=== PATIENT | male | born 1950 | race Caucasian/White ===

== ENCOUNTER 2022-05-16 15:58 | Emergency (ER) | payer MEDICARE, BC ==
[~2022-05-16] VITALS: Ht 185.4 cm; Wt 95.7 kg
--- NOTE | 2022-05-16 16:10 | NUR ---
RECEIVED PT 71 YRS old male came by rob peña/andres back pain 04/28 goting worser today dineses HX TRUAMA MOVING ALL EXTRAMITY
[2022-05-16] MEDS ORDERED: predniSONE 20 MG TABLET PO ONE (16:30)
[2022-05-16] MEDS ORDERED: KETOROLAC TROMETHAMINE INJ 60 MG/2 ML VIAL IM ONE ×2 (16:30→16:35)
[2022-05-16] MEDS ORDERED: DIAZEPAM 5 MG TABLET PO ONE (16:30)
[2022-05-16] MEDS ORDERED: predniSONE 20 MG TABLET ONE (16:36)
[2022-05-16] MEDS ORDERED: DIAZEPAM 5 MG TABLET ONE (16:36)
[2022-05-16] MEDS ORDERED: HYDR-3972 PO ×2 (17:55→19:51)
[2022-05-16] MEDS ORDERED: METH-647 PO ×2 (17:55→19:51)
[2022-05-16] MEDS ORDERED: PRED50TA PO ×2 (17:55→19:51)
--- NOTE | 2022-05-16 18:10 | NUR ---
Patient discharged to home in stable condition. Written and verbal after care instructions given. Patient verbalizes understanding of instruction.
[2022-05-16] MEDS ORDERED: CAPS42.513 TP ×2 (18:22→19:51)
[2022-05-16 18:26] VITALS: BP 116/65
== END 2022-05-16 18:29 | disposition home or self-care (01) ==
LOC: ER 16:06
DX: M54.31 Sciatica, right side (principal); I10 Essential (primary) hypertension; E78.00 Pure hypercholesterolemia, unspecified
CPT/HCPCS: 99283; 96372; J7512; J1885

== ENCOUNTER 2022-09-16 19:33 | Emergency (ER) | payer MEDICARE, BC ==
[~2022-09-16] VITALS: Ht 185.4 cm; Wt 90.7 kg
[~2022-09-16 19:33] MED LIST: CAPS42.513 TP; HYDR-3972 PO; METH-647 PO; PRED50TA PO
--- NOTE | 2022-09-16 20:00 | NUR ---
BIB FOR C/O H/A AND DIZZIESS X 1 WEEK. PATIENT IS AAOX4. AMBULATORY. ABLE TO MAKE NEEDS KNOWN. PER PATIENT, THE DIZZINESS AND SPLITTING HEADACHE STARTED 6 DAYS AGO WHEN HE UNDERGONE PREDNISONE TREATMENT FOR SCIATICA. PATIENT IS ATTACHED TO MONITOR. VITALS CHECKED.
--- NOTE | 2022-09-16 20:12 | NUR ---
SEEN BY DR CEDILLO AT BEDSIDE
[2022-09-16] MEDS ORDERED: SUMATRIPTAN SUCCINATE 6 MG/0.5 ML VIAL SQ ONE ×2 (20:24→20:30)
[2022-09-16] MEDS ORDERED: diphenhydrAMINE HCL 50 MG/ML VIAL ONE (20:24)
[2022-09-16] MEDS ORDERED: IV NS 0.9% 1,000 ML BAG IV ONE (20:30)
[2022-09-16] MEDS ORDERED: diphenhydrAMINE HCL 50 MG/ML VIAL IV ONE (20:30)
--- NOTE | 2022-09-16 20:33 | NUR ---
PT TAKEN TO CT VIA [facility]
[2022-09-16 20:35] LABS: BASOPHILS % (AUTO) 0.2 % (0.0-2.0); EOSINOPHILS % (AUTO) 0.4 % (0.0-6.0); HEMATOCRIT 43 % (39-51); HEMOGLOBIN 14.8 g/dL (13.5-17.5); LYMPHOCYTES # (AUTO) 2.6 K/uL (0.8-4.8); LYMPHOCYTES % (AUTO) 25.4 % (20.0-44.0); MEAN CORPUSCULAR HGB CONC 34 g/dl (31.0-36.0); MEAN CORPUSCULAR VOLUME 89 fL (80-96); MONOCYTES # (AUTO) 0.7 K/uL (0.1-1.30); NEUTROPHILS # (AUTO) 6.7 K/uL (1.8-8.9); PLATELET COUNT (AUTO) 329 K/uL (150-450); RED BLOOD CELL COUNT(AUTO) 4.87 MIL/uL (4.5-6.0); WHITE BLOOD COUNT (AUTO) 10.1 K/uL (4.3-11.0)
[2022-09-16 20:54] LABS: CALCIUM, SERUM 9.6 mg/dL (8.5-10.1); POTASSIUM 3.3 mmol/L (3.5-5.1)
[2022-09-16 20:59] LABS: ALBUMIN 3.9 g/dL (3.4-5.0); BILIRUBIN,DIRECT 0.2 mg/dL (0.0-0.2); BILIRUBIN,TOTAL 1.4 mg/dL (0.2-1.0); TOTAL PROTEIN, SERUM 7.9 g/dL (6.4-8.2)
[2022-09-16] MEDS ORDERED: POTASSIUM CHLORIDE 20 MEQ TAB.PRT.SR PO ONE ×2 (21:30→21:43)
--- NOTE | 2022-09-16 22:09 | NUR ---
Patient discharged to home in stable condition. Written and verbal after care instructions given. Patient verbalizes understanding of instruction.
--- NOTE | 2022-09-16 22:09 | NUR ---
IV CANNULA REMOVED
[2022-09-16 22:10] VITALS: BP 140/105
== END 2022-09-16 22:10 | disposition home or self-care (01) ==
LOC: ER 19:37
DX: R51.9 Headache, unspecified (principal); J33.9 Nasal polyp, unspecified; I10 Essential (primary) hypertension; E78.00 Pure hypercholesterolemia, unspecified; F17.200 Nicotine dependence, unspecified, uncomplicated
CPT/HCPCS: 99285; 96374; 70450; 96361; 85025; 80048; 80076; 85652; 36415; 96372; J1200; J3030; J7030

== ENCOUNTER 2022-09-17 15:14 | Emergency (ER) | payer MEDICARE, BC ==
[~2022-09-17] VITALS: Ht 185.4 cm; Wt 90.7 kg
--- NOTE | 2022-09-17 15:38 | NUR ---
DR ANDREWS AT BS FOR CHEVY
--- NOTE | 2022-09-17 15:55 | NUR ---
ESTABLISHED IV ACCESS 18G RIGHT AC. BLOOD DRAWN AND SENT TO LAB.
[2022-09-17 16:04] LABS: BASOPHILS % (AUTO) 0.5 % (0.0-2.0); EOSINOPHILS % (AUTO) 0.9 % (0.0-6.0); HEMATOCRIT 45 % (39-51); HEMOGLOBIN 15.2 g/dL (13.5-17.5); LYMPHOCYTES # (AUTO) 2.8 K/uL (0.8-4.8); MEAN CORPUSCULAR HGB CONC 34 g/dl (31.0-36.0); MEAN CORPUSCULAR VOLUME 88 fL (80-96); MONOCYTES # (AUTO) 0.8 K/uL (0.1-1.30); MONOCYTES % (AUTO) 8.7 % (2.0-12.0); NEUTROPHILS # (AUTO) 5.6 K/uL (1.8-8.9); NEUTROPHILS % (AUTO) 59.9 % (43.0-81.0); PLATELET COUNT (AUTO) 322 K/uL (150-450); RED BLOOD CELL COUNT(AUTO) 5.09 MIL/uL (4.5-6.0); WHITE BLOOD COUNT (AUTO) 9.3 K/uL (4.3-11.0)
[2022-09-17 16:12] LABS: CALCIUM, SERUM 9.5 mg/dL (8.5-10.1); CARBON DIOXIDE 27 mmol/L (21-32); CHLORIDE 99 mmol/L (98-107); CREATININE 0.9 mg/dL (0.6-1.3); GLUCOSE 105 mg/dL (74-106); POTASSIUM 3.7 mmol/L (3.5-5.1); SODIUM SERUM 134 mmol/L (136-145); UREA NITROGEN, BLOOD 17 mg/dL (7-18)
--- NOTE | 2022-09-17 17:42 | NUR ---
Patient discharged to home in stable condition. Written and verbal after care instructions given. Patient verbalizes understanding of instruction.
[2022-09-17 17:43] VITALS: BP 125/95
== END 2022-09-17 17:42 | disposition home or self-care (01) ==
LOC: ER 15:17
DX: R42 Dizziness and giddiness (principal); I10 Essential (primary) hypertension; E78.00 Pure hypercholesterolemia, unspecified; Z79.899 Other long term (current) drug therapy
CPT/HCPCS: 36415; 71045-TC; 80048-TC; 84484-TC; 85025-TC

== ENCOUNTER 2023-07-01 09:21 | Emergency (ER) | payer MEDICARE, BC ==
[~2023-07-01] VITALS: Ht 185.4 cm; Wt 92.1 kg
[2023-07-01 09:54] LABS: BASOPHILS % (AUTO) 0.5 % (0.0-2.0); EOSINOPHILS # (AUTO) 0.1 K/uL (0.0-0.7); EOSINOPHILS % (AUTO) 2.1 % (0.0-6.0); HEMATOCRIT 43 % (39-51); HEMOGLOBIN 14.8 g/dL (13.5-17.5); LYMPHOCYTES # (AUTO) 1.6 K/uL (0.8-4.8); LYMPHOCYTES % (AUTO) 29.4 % (20.0-44.0); MEAN CORPUSCULAR HEMOGLOBIN 30 PG (26.0-33.0); MEAN CORPUSCULAR HGB CONC 34 g/dl (31.0-36.0); MEAN CORPUSCULAR VOLUME 88 fL (80-96); MONOCYTES # (AUTO) 0.4 K/uL (0.1-1.30); MONOCYTES % (AUTO) 7.2 % (2.0-12.0); NEUTROPHILS # (AUTO) 3.3 K/uL (1.8-8.9); NEUTROPHILS % (AUTO) 60.8 % (43.0-81.0); PLATELET COUNT (AUTO) 241 K/uL (150-450); RED BLOOD CELL COUNT(AUTO) 4.91 MIL/uL (4.5-6.0); RED CELL DISTRIBUTION WIDTH 13.3 % (11.5-15.0); WHITE BLOOD COUNT (AUTO) 5.4 K/uL (4.3-11.0)
[2023-07-01 10:12] LABS: CALCIUM, SERUM 9.3 mg/dL (8.5-10.1); CARBON DIOXIDE 26 mmol/L (21-32); CHLORIDE 103 mmol/L (98-107); GLUCOSE 99 mg/dL (74-106); POTASSIUM 3.5 mmol/L (3.5-5.1); SODIUM SERUM 139 mmol/L (136-145); UREA NITROGEN, BLOOD 11 mg/dL (7-18)
[2023-07-01 10:19] LABS: ALANINE AMINOTRANSFERASE 19 U/L (12-78); ALBUMIN 4.2 g/dL (3.4-5.0); ALKALINE PHOSPHATASE 124 U/L (46-116); ASPARTATE AMINOTRANSFERASE 14 U/L (15-37); BILIRUBIN,DIRECT 0.2 mg/dL (0.0-0.2); BILIRUBIN,TOTAL 1.6 mg/dL (0.2-1.0); LIPASE 21 U/L (16-77); TOTAL PROTEIN, SERUM 8.2 g/dL (6.4-8.2)
[2023-07-01 11:27] VITALS: BP 151/81; TEMP 98.2; O2SAT 98
== END 2023-07-01 11:28 | disposition home or self-care (01) ==
LOC: ER 09:36
DX: R07.9 Chest pain, unspecified (principal); I10 Essential (primary) hypertension; E78.00 Pure hypercholesterolemia, unspecified
CPT/HCPCS: 36415; 71045-TC; 80048-TC; 80076-TC; 83690-TC; 84484-TC; 85025-TC